=== PATIENT | female | born 1955 | race Caucasian/White ===

== ENCOUNTER 2019-10-28 16:40 | Emergency (ER) | payer OTHER, SELFPAY ==
[~2019-10-28] VITALS: Ht 172.7 cm; Wt 131.8 kg
[2019-10-28] MEDS ORDERED: SYNT25TA PO (16:53)
[2019-10-28] MEDS ORDERED: IBUPROFEN 600MG TAB PO ONE (17:00)
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
[2019-10-28] MEDS ORDERED: IBUP-1022 PO (18:19)
[2019-10-28] MEDS ORDERED: CYCL-707 PO (18:19)
[2019-10-28 18:30] VITALS: BP 170/84
== END 2019-10-28 18:32 | disposition home or self-care (01) ==
LOC: M ED 16:40 → EDBD 16:40 → M ED 18:32
DX: S23.3XXA Sprain of ligaments of thoracic spine, initial encounter (principal); V43.62XA Car passenger injured in collision with other type car in traffic accident, initial encounter; Y92.9 Unspecified place or not applicable; Y93.9 Activity, unspecified; Y99.9 Unspecified external cause status; M41.84 Other forms of scoliosis, thoracic region; E07.9 Disorder of thyroid, unspecified; Z79.899 Other long term (current) drug therapy; Z88.0 Allergy status to penicillin; Z88.5 Allergy status to narcotic agent